=== PATIENT | male | born 1975 | race Hispanic/Latino ===

== ENCOUNTER 2022-09-08 20:50 | Emergency (ER) | payer OTHER ==
[~2022-09-08] VITALS: Ht 180.3 cm; Wt 101.6 kg
[2022-09-08] MEDS ORDERED: LISINOPRIL40 MG PO (22:23)
--- NOTE | 2022-09-09 21:35 | EKG ---
[facility] [address] [place] [address] Signed Normal sinus rhythm Septal infarct , age undetermined Abnormal ECG No previous ECGs available Confirmed by Nitish Scruggs MD () on 09/09/2022 9:35:28 PM Electronically Signed By: NITISH SCRUGGS MD 09/09/22 2135 PATIENT NAME: GANGA DUNN Electrocardiogram DATE OF : 73 PHYSICIAN: NITISH SCRUGGS MD REPORT #: [id number] REPORT IS CONFIDENTIAL AND NOT TO BE RELEASED WITHOUT AUTHORIZATION
== END 2022-09-08 22:50 | disposition home or self-care (01) ==
LOC: ED 20:50
DX: I16.0 Hypertensive urgency (principal); I10 Essential (primary) hypertension; Z91.199 Patient's noncompliance with other medical treatment and regimen due to unspecified reason
CPT/HCPCS: 36415; 70450; 80053; 81001; 85025; 93005; 93010; 99285-25

== ENCOUNTER 2022-11-28 01:21 | Emergency (ER) | payer OTHER ==
[~2022-11-28] VITALS: Ht 180.3 cm; Wt 101.6 kg
[~2022-11-28 01:21] MED LIST: LISINOPRIL40 MG PO
--- NOTE | 2022-11-28 15:09 | EKG ---
[facility] [address] [facility] [place], [place] [address] Signed Sinus bradycardia Otherwise normal ECG When compared with ECG of 08-SEP-2022 21:35, No significant change was found Confirmed by CHAU CALVO MD ([id number]) on 11/28/2022 3:09:18 PM Electronically Signed By: CHAU CALVO MD 11/28/22 1509 PATIENT NAME: GANGA DUNN TORRI Electrocardiogram DATE OF : 73 PHYSICIAN: CHAU CALVO MD REPORT #: [id number] REPORT IS CONFIDENTIAL AND NOT TO BE RELEASED WITHOUT AUTHORIZATION
== END 2022-11-28 02:26 | disposition home or self-care (01) ==
LOC: ED 01:21
DX: R07.89 Other chest pain (principal); I10 Essential (primary) hypertension; Z91.14 Patient's other noncompliance with medication regimen; Z79.899 Other long term (current) drug therapy
CPT/HCPCS: 36415; 71045; 80053; 84484; 85025; 93005; 93010; 99285-25